=== PATIENT | female | born 1975 | race African-American/Black ===

== ENCOUNTER 2019-02-22 08:26 | Emergency (ER) | payer BC ==
[~2019-02-22] VITALS: Ht 175.3 cm; Wt 131.5 kg
[2019-02-22 08:43] VITALS: BP 145/86
[2019-02-22] MEDS ORDERED: ACETAMINOPHEN 500 MG TAB PO ONE (09:00)
== END 2019-02-22 09:31 | disposition home or self-care (01) ==
LOC: ER 08:26
DX: G44.209 Tension-type headache, unspecified, not intractable (principal); I10 Essential (primary) hypertension; H66.91 Otitis media, unspecified, right ear
CPT/HCPCS: 70450

== ENCOUNTER 2021-02-13 02:56 | Emergency (ER) | payer OTHER, MEDICAID ==
[~2021-02-13] VITALS: Ht 175.3 cm; Wt 117.9 kg
[2021-02-13 04:25] LABS: Basophils # (auto) 0 10 ^3/uL (0-0.2); Basophils % (auto) 0.5 % (0.0-2.0); Eosinophils # (auto) 0.1 10 ^3/uL (0-0.8); Eosinophils % (auto) 1.2 % (0.0-7.0); Hematocrit 36.6 % (36.0-46.0); Hemoglobin 12.2 g/dL (12.2-16.2); Lymphocytes # (auto) 1.3 10 ^3/uL (0.4-5.4); Lymphocytes % (auto) 16.1 % (10.0-50.0); Mean Corpuscular Hemoglobin 28.4 pg (28.0-32.0); Mean Corpuscular Hgb Conc. 33.4 g/dL (32.0-36.0); Monocytes # (auto) 0.7 10 ^3/uL (0-1.3); Monocytes % (auto) 8.6 % (0.0-12.0); Neutrophils % (auto) 73.6 % (37.0-80.0); Platelet Count (auto) 281 10^3/uL (140-450); Red Cell Distribution Width 14.6 % (11.8-14.3); White Blood Cell 8.2 10^3/uL (4.4-10.8)
[2021-02-13 04:50] LABS: Albumin 3.8 g/dL (3.4-5.0); Calcium 8.5 mg/dL (8.5-10.1); Potassium 4.2 mmol/L (3.5-5.1)
[2021-02-13 04:52] LABS: BUN/Creatinine Ratio 10.5; Bilirubin, Total 0.2 mg/dL (0.2-1.0); Total Protein 7.5 g/dL (6.4-8.2)
[2021-02-13 04:59] LABS: Urine Bacteria MOD /hpf (None Seen); Urine Blood 3+ /uL (Negative); Urine Hyaline Cast FEW /lpf (0 - 2); Urine Mucus FEW (None Seen); Urine Specific Gravity 1.022 (1.001-1.035); Urine WBC 3 /hpf (0 - 5)
[2021-02-13] MEDS ORDERED: METOCLOPRAMIDE HCL 5MG/ml INJ 2ml VIAL IV ONE (07:00)
[2021-02-13] MEDS ORDERED: SODIUM CHLORIDE 0.9% 1,000 ML IV ONE (07:00)
[2021-02-13] MEDS ORDERED: KETOROLAC TROMETH 30 MG/ML 1ML VIAL IV ONE (07:00)
[2021-02-13 07:33] LABS: Magnesium 2.3 mg/dL (1.6-2.6)
[2021-02-13 07:51] LABS: Beta HCG, Quantitative < 1 mlU/mL (1-3)
[2021-02-13 09:04] VITALS: BP 96/48
== END 2021-02-13 09:06 | disposition home or self-care (01) ==
LOC: ER 02:56
DX: N94.6 Dysmenorrhea, unspecified (principal); R82.71 Bacteriuria; I10 Essential (primary) hypertension; E66.9 Obesity, unspecified; R10.32 Left lower quadrant pain; Z68.38 Body mass index [BMI] 38.0-38.9, adult
CPT/HCPCS: 36415; 71046; 74176; 80053; 81001; 81025; 83605; 83690; 83735; 84443; 84702; 85025; 93005; 96361; 96374; 96375; 99285; J1885; J2765; J7030

== ENCOUNTER 2024-07-08 07:01 | Emergency (ER) | payer MEDICAID, OTHER ==
[~2024-07-08] VITALS: Ht 175.3 cm; Wt 130.2 kg
[2024-07-08 08:45] LABS: Basophils # (auto) 0 10 ^3/uL (0-0.2); Basophils % (auto) 0.9 % (0.0-2.0); Eosinophils # (auto) 0.1 10 ^3/uL (0-0.8); Eosinophils % (auto) 2.5 % (0.0-7.0); Hemoglobin 12.8 g/dL (12.2-16.2); Lymphocytes # (auto) 1.5 10 ^3/uL (0.4-5.4); Lymphocytes % (auto) 31.7 % (10.0-50.0); Mean Corpuscular Hemoglobin 28.7 pg (28.0-32.0); Mean Corpuscular Hgb Conc. 33.6 g/dL (32.0-36.0); Mean Corpuscular Volume 85.3 fL (80.0-100.0); Monocytes # (auto) 0.5 10 ^3/uL (0-1.3); Monocytes % (auto) 10.4 % (0.0-12.0); Neutrophils # (auto) 2.5 10 ^3/uL (1.6-8.6); Neutrophils % (auto) 54.5 % (37.0-80.0); Nucleated Red Blood Cells % 0.4 %; Platelet Count (auto) 219 10^3/uL (140-450); Red Blood Cells 4.46 10^6/uL (4.0-5.20); Red Cell Distribution Width 14.8 % (11.8-14.3); White Blood Cell 4.6 10^3/uL (4.4-10.8)
[2024-07-08 09:25] LABS: Chloride 110 mmol/L (98-107); Sodium 138 mmol/L (136-145)
[2024-07-08 09:26] LABS: Anion Gap 8 (5-15); Calcium 6.2 mg/dL (8.7-10.4); Carbon Dioxide 20 mmol/L (20-30)
[2024-07-08 09:32] LABS: BUN/Creatinine Ratio 18.4 (10.0-20.0); Blood Urea Nitrogen 19 mg/dL (9-23); Glucose 96 mg/dL (74-106)
[2024-07-08 09:43] LABS: Potassium 6.6 mmol/L (3.5-5.1)
[2024-07-08 11:00] LABS: Alanine Aminotransferase 23 U/L (7-40); Albumin 4.7 g/dL (3.2-4.8); Alkaline Phosphatase 80 U/L (46-116); Anion Gap 6 (5-15); Aspartate Aminotransferase 13 U/L (13-40); BUN/Creatinine Ratio 15.8 (10.0-20.0); Bilirubin, Total 0.4 mg/dL (0.2-1.0); Blood Urea Nitrogen 15 mg/dL (9-23); Calcium 9.5 mg/dL (8.7-10.4); Carbon Dioxide 21 mmol/L (20-30); Chloride 111 mmol/L (98-107); Creatine Kinase IFCC 130 U/L (34-145); Glucose 95 mg/dL (74-106); Potassium 4.3 mmol/L (3.5-5.1); Sodium 138 mmol/L (136-145); Total Protein 7.3 g/dL (5.7-8.2)
[2024-07-08 11:33] LABS: Urine Bacteria MANY /hpf (None Seen); Urine Blood Negative /uL (Negative); Urine Clarity Clear (Clear); Urine Color Yellow (Yellow); Urine Mucus FEW (None Seen); Urine Protein, UAD TRACE (Negative); Urine Specific Gravity 1.031 (1.001-1.035); Urine Urobilinogen Normal (Negative); Urine WBC 2 /hpf (0 - 5); Urine pH 5.5 (5.0-9.0)
[2024-07-08] MEDS ORDERED: MELO7.5T7 PO (11:54)
[2024-07-08 11:55] VITALS: BP 150/94; PULSE 75; RESP 20; TEMP 97.9; O2SAT 99
== END 2024-07-08 12:01 | disposition home or self-care (01) ==
LOC: ER 07:01
DX: M17.12 Unilateral primary osteoarthritis, left knee (principal); M67.462 Ganglion, left knee; Z79.899 Other long term (current) drug therapy
CPT/HCPCS: 36415; 73700; 80048; 80053; 81001; 82550; 85025; 85379; 93005

== ENCOUNTER 2024-07-09 06:39 | Emergency (ER) | payer MEDICAID ==
[~2024-07-09] VITALS: Ht 165.1 cm; Wt 132.0 kg
[~2024-07-09 06:39] MED LIST: MELO7.5T7 PO
[2024-07-09 08:03] LABS: Chloride 111 mmol/L (98-107); Potassium 4.2 mmol/L (3.5-5.1); Sodium 141 mmol/L (136-145)
[2024-07-09 08:05] LABS: Anion Gap 8 (5-15); Calcium 9.2 mg/dL (8.7-10.4); Carbon Dioxide 22 mmol/L (20-30)
[2024-07-09 08:09] LABS: Blood Urea Nitrogen 15 mg/dL (9-23)
[2024-07-09 08:10] LABS: BUN/Creatinine Ratio 15.8 (10.0-20.0); Glucose 100 mg/dL (74-106)
[2024-07-09 08:51] VITALS: BP 130/87; PULSE 16; RESP 16; TEMP 97.6; O2SAT 99
== END 2024-07-09 09:15 | disposition home or self-care (01) ==
LOC: ER 06:39
DX: E87.5 Hyperkalemia (principal); I10 Essential (primary) hypertension
CPT/HCPCS: 36415; 80048